=== PATIENT | male | born 1930 | race Caucasian/White ===

== ENCOUNTER 2017-08-14 05:02 | Emergency (ER) | payer OTHER ==
[~2017-08-14] VITALS: Ht 177.8 cm; Wt 77.1 kg
--- NOTE | ~2017-08-14 | EKG ---
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: [id number] : 1930 Requested By: Melvin Lam Order Number: [id number] MD: Gulshan Nevarez Measurements Intervals [place] Rate: 90 P: -39 MO: 140 QRS: -64 QRSD: 134 T: 91 QT: 387 QTc: 474 Interpretive Statements Sinus rhythm with first-degree AV block Atrial premature complexes Nonspecific IVCD with LAD Artifact in lead(s) I,III,aVR,aVL,V2,V3,V4,V5,V6 No previous ECG available for comparison Electronically Signed On 08-14-2017 8:13:40 [employer] by Gulshan Nevarez [email or web address] <ELECTRONICALLY SIGNED> By: Gulshan Nevarez MD, [facility] 08/14/17 0813 0534 0534 Gulshan Nevarez MD, [facility] /EPI
[2017-08-14] MEDS ORDERED: FERATE240 M1 PO (05:14)
[2017-08-14] MEDS ORDERED: TYLENOL325 MG PO (05:15)
[2017-08-14] MEDS ORDERED: [UNRECOGNIZED DRUG - OTHER] PO (05:15)
[2017-08-14] MEDS ORDERED: ONDANSETRON HCL4 M2 PO (05:16)
[2017-08-14] MEDS ORDERED: MILK OF MA2400 MG/10 PO (05:16)
[2017-08-14] MEDS ORDERED: GERI-HYDROLAC140 GM (05:17)
[2017-08-14] MEDS ORDERED: LASIX 40 MG TAB40 M2 PO (05:17)
[2017-08-14] MEDS ORDERED: APAP650 PO (05:17)
[2017-08-14] MEDS ORDERED: ASPIRIN81 M2 PO (05:18)
[2017-08-14] MEDS ORDERED: CALCITRIOL0.25 MCG PO (05:18)
[2017-08-14] MEDS ORDERED: ARICEPT 5 MG TAB5 MG PO (05:19)
[2017-08-14] MEDS ORDERED: JANUVIA100 MG PO ×2 (05:22→05:23)
[2017-08-14] MEDS ORDERED: LASIX 80 MG TAB80 MG PO (05:22)
[2017-08-14 05:31] LABS: HEMATOCRIT 34.2 % (42.0-52.0); HEMOGLOBIN 11.8 gm/dL (14.0-18.0); MCH 33.4 pg (26.0-34.0); MCHC 34.4 g/dL (28.0-37.0); MCV 97.1 fL (80.0-100.0); RBC 3.53 mil/uL (4.50-6.00); RDW 13.2 % (10.5-14.5); WBC 9.3 thou/uL (4.0-11.0)
[2017-08-14 05:42] LABS: CALCIUM 9.6 mg/dL (8.5-10.1); POTASSIUM 4.2 mmol/L (3.5-5.1)
== END 2017-08-14 08:02 ==
LOC: ER 05:02
PROVIDERS: Emergency Medicine
DX: F03.90 Unspecified dementia, unspecified severity, without behavioral disturbance, psychotic disturbance, mood disturbance, and anxiety (principal)